=== PATIENT | male | born 1995 | race Caucasian/White ===

== ENCOUNTER 2021-12-23 16:46 | Emergency (ER) | payer OTHER ==
[~2021-12-23] VITALS: Ht 188 cm; Wt 111.4 kg
[2021-12-23 17:27] VITALS: TEMP 98.2
[2021-12-23] MEDS ORDERED: POLYMYXIN B/TRIMETH OD (20:04)
[2021-12-23 20:10] VITALS: BP 154/80; PULSE 78
== END 2021-12-23 20:10 | disposition home or self-care (01) ==
LOC: COL.ER 16:46
DX: S05.01XA Injury of conjunctiva and corneal abrasion without foreign body, right eye, initial encounter (principal); X58.XXXA Exposure to other specified factors, initial encounter